=== PATIENT | female | born 1965 | race Caucasian/White ===

== ENCOUNTER → 2016-06-28 | Outpatient (CLI) | payer OTHER, BC ==
[~2016-06-28] MED LIST: ADDERALL 10 MG10 MG PO; ADULT LOW DOSE81 MG PO; ALBUTEROL INH INH; ALBUTEROL2.5 MG/31 INH; ALENDRONATE SOD70 MG PO; AMBEREN PO; ANASPAZ0.125 MG SL; ASPIRIN EC81 M1 PO; ATIVAN0.5 MG PO; BACTRIM DS TAB1 EACH PO; BENTYL 20 MG TA20 M1 PO; BENTYL20 MG PO; CALCIUM 1,0001 EACH PO; CALCIUM 500+D1 EAC2 PO; CARAFATE 1 GM TA1 G1; CARAFATE 1 GM TA1 GM PO; CELEBREX 200 M200 MG PO; CENTRUM SILVER1 EAC1 PO; CENTRUM SILVER1 EAC2 PO; CIPRO250 M1 PO; CIPROFLOXACIN500 M1 PO; CITRACAL + D C1 EACH PO; CITRACAL + D31 EACH PO; CITRATE OF MAG296 ML PO; CLONAZEPAM 0.50.5 M1 PO; CLONAZEPAM 1 MG1 M1 PO; COLACE 100 MG100 MG PO; COLACE100 MG PO; COLESTID1 GM PO; COLESTIPOL; COMPAZINE10 M1 PO; COMPAZINE10 MG PO; COMPAZINE5 MG PO; DEXEDRINE10 MG PO; DEXTROAMP-AMPHE10 MG PO; DEXTROSTAT10 MG PO; DIFLUCAN PO; DIFLUCAN150 MG PO; DILAUDID 2 MG TA2 MG PO; DILAUDID2 MG PO; DOMPERIDONE PO; DULCOLAX STOOL100 MG PO; DULERA 100 MCG/13 GM; ENDOCET 5-3251 EACH PO; FENTANYL PA50 MCG/HR TP; FLAGYL500 MG PO; FLOMAX0.4 MG PO; GLYCOLAX POWDER17 G1 PO; HYDROCODON-ACE1 EAC1 PO; HYDROCODONE-AP1 EAC6 PO; HYDROXYZINE HCL25 M1 PO; LEXAPRO20 MG PO; LIDODERM 5%1 PATC1 TRANSDERM; LIDODERM 5%1 PATCH TOP; LINZESS145 MCG PO; LINZESS290 MCG PO; LORTAB PO; LOTRIMIN AF12 GM TP; LOVENOX IJ; LOVENOX SC; LOVENOX SQ; LOW DOSE ASPIRI81 M1 PO; MACROBID 100 M100 M1 PO; MAGNESIUM GLUC250 MG PO; METOCLOPRAMIDE10 MG PO; MIRALAX17 GM PO; MOM PO; MOVANTIK25 MG PO; MULTIVITAMINS PO; MUPIROCIN1 GM TP; OSPHENA60 MG PO; OXYCODON-ACETA1 EAC1 PO; OXYCODONE HCL E20 MG PO; OXYCODONE HCL10 MG PO; OXYCODONE HCL5 M1; OXYCODONE HCL5 M1 PO; OXYCONTIN10 M1 PO; OXYCONTIN20 MG PO; PANTOPRAZOLE SO40 M1 PO; PERCOCET 5-3251 EACH PO; PERCOCET PO; PHENAZOPYRIDIN200 M2 PO; PHENERGAN 25 MG25 M1 PO; PHENERGAN25 M2 RC; PHENERGAN50 MG RC; PREDNISONE 20 M20 M1 PO; PROAIR HFA8.5 GM; PROBIOTIC1 EAC1 PO; PROBIOTIC1 EAC3 PO; PROMETHAZINE HC25 M1 PO; PROMETHAZINE-C120 ML PO; PROMETHAZINE12.5 M4 RE; PROMS25 WY RECTAL; PROTONIX40 M2 PO; RESTASIS1 EACH OPHTHALMIC; ROXICODONE15 MG PO; SCOPOLAMINE 0.4 MG/ML; SIMVASTATIN40 MG PO; SPIRIVA18 MCG; TRAMADOL PO; TRANSDERM-SCO1 PATC1 TD; TRANSDERM-SCO1 PATCH; TRANSDERM-SCO1 PATCH TD; TYLENOL325 MG PO; VENTOLIN HFA 1818 GM; VENTOLIN HFA 1818 GM INH; VENTOLIN17 GM INH; VITAMIN D 5050000 I1 PO; VITAMINC500 PO; VITCB500GO; VIVANCE; VYVANSE70 MG PO; WELLBUTRIN 100100 M1 NG; WELLBUTRIN 100100 MG PO; WELLBUTRIN XL150 M2 PO; WELLBUTRIN XL300 MG PO; XARELTO10 MG PO; XIFAXAN550 MG PO; ZANAFLEX4 MG PO; ZOFRAN 4 MG ORAL4 M1 DIS; ZOFRAN 4 MG ORAL4 MG PO; ZOFRAN ODT4 MG DISSOLVE; ZOFRAN ODT4 MG PO; ZOFRAN4 MG PO; ZOFRAN8 MG PO; ZPAK PO; [UNRECOGNIZED DRUG - OTHER]
--- NOTE | ~2016-06-28 | P ---
[facility] [place] [address] PROCEDURE REPORT Name: AVEL BEARD [id number] Admission: 06/28/16 Attend Phys: Neil Mayfield Discharge: Date of : 61 Report #: [id number] THIS REPORT FOR: //name// CC: Neil Mccann MD DATE OF SERVICE: 06/28/2016 PROCEDURE PERFORMED: Upper endoscopy with esophageal dilation and removal and replacement of peg J tube. HISTORY OF PRESENT ILLNESS: The patient is a 51-year-old female with a history of dysphagia and gastroparesis. She has had a peg J tube in place for years for nutritional support. The tube is getting old and needs to be replaced. She has also been complaining of dysphagia. DESCRIPTION OF PROCEDURE: The risks and benefits of the procedure were explained to the patient, those risks including but not limited to bleeding, perforation, the risk of sedation. She understood these risks and gave informed consent. Sedation was given using propofol per anesthesia. Next, using a standard Enswersinon upper endoscope, the scope was placed in the patient's mouth and advanced under direct vision through the esophagus, stomach and into the second portion of the duodenum. The esophagus was normal throughout. The GE junction was normal. Overall, the gastric mucosa was normal. The PEG tube with J-extension was noted, it was coiled in the stomach, however, the distal portion was in the duodenal bulb. The pylorus was normal and patent. The duodenal bulb, first and second portion were all normal. The scope was then brought back up into the patient's stomach and a Savary guidewire was inserted through the scope, leaving the guidewire in place as the scope was then withdrawn. Next, a 48-Scottish Savary dilation of the esophagus was then performed without difficulty. The wire and the dilator were removed. The scope was reintroduced into the patient's stomach. At this point, the peg J was pulled without difficulty and a blue guidewire was inserted through the peg fistula into the gastric lumen under direct vision. This was grasped with a snare and the wire was brought back up to the patient's mouth. Next, a 24-Scottish PEG tube was then secured to the blue guidewire and using a pull technique, it was put into position without difficulty. Next, the scope was reintroduced into the patient's stomach and a guidewire was advanced through the PEG tube. This was grasped with a biopsy forceps, and this was brought back down into the duodenum. Next a J tube was threaded over the wire without difficulty. Unfortunately I was not able to maintain the distal portion of the J-tube in the duodenum as it kept coiling in the stomach, which has happened multiple times in the past. Therefore, at this point, the scope was then withdrawn and the procedure terminated. The patient tolerated the procedure well. [address] [address] PROCEDURE REPORT Name: AVEL BEARD Room #: FRAN Cordova#: [id number] Admission: 06/28/16 Attend Phys: Neil Mayfield Discharge: Date of : 61 Report #: [id number] IMPRESSION: Normal upper endoscopy with esophageal dilation, removal and replacement of peg J tube. RECOMMENDATIONS: We will have IR wire-guide the J-portion into the duodenum later today, after which the patient can start using peg J tube today. Thank you for allowing me to participate in her care. <ELECTRONICALLY SIGNED> By: Neil Gandara MD 07/05/16 0936 1124 1541 Neil Gandara MD /nt
== END | disposition home or self-care (01) ==
LOC: GI 09:09
DX: K31.84 Gastroparesis (principal); M79.7 Fibromyalgia; K58.8 Other irritable bowel syndrome; J45.909 Unspecified asthma, uncomplicated; E83.118 Other hemochromatosis; N30.10 Interstitial cystitis (chronic) without hematuria; D68.61 Antiphospholipid syndrome; K22.4 Dyskinesia of esophagus; Z90.710 Acquired absence of both cervix and uterus; F17.200 Nicotine dependence, unspecified, uncomplicated
CPT/HCPCS: 62110

== ENCOUNTER 2016-06-30 12:35 | Emergency (ER) | payer OTHER, BC ==
[~2016-06-30] VITALS: Ht 165.1 cm; Wt 65.8 kg
[~2016-06-30 12:35] MED LIST changes: -MACROBID 100 M100 M1 PO; -OXYCODONE HCL10 MG PO
[2016-06-30] MEDS ORDERED: OXYCODONE HCL10 MG PO (13:25)
[2016-06-30 14:01] LABS: URINE BILIRUBIN NEGATIVE (Negative); URINE BLOOD 1+ (Negative); URINE COLOR YELLOW; URINE GLUCOSE-RANDOM* NEGATIVE (Negative); URINE KETONES NEGATIVE (Negative); URINE NITRITE NEGATIVE (Negative); URINE PROTEIN (DIPSTICK) TRACE (Negative); URINE SPECIFIC GRAVITY >= 1.030 (1.003-1.035); URINE UROBILINOGEN 0.2 E.U./dl (0.2-1.0)
[2016-06-30 14:06] LABS: SQUAMOUS 0-3 Few /LPF (0-3)
[2016-06-30 14:07] LABS: BACTERIA 1-9 Few /HPF (None Seen); CASTS None Seen /LPF (None Seen); CRYSTALS None Seen /LPF (None Seen); URINE RBC 0-2 Rare /HPF (0-2)
[2016-06-30] MEDS ORDERED: MACROBID 100 M100 M1 PO (14:20)
[2016-06-30 14:49] LABS: HEMATOCRIT 38.7 % (37.0-47.0); HEMOGLOBIN 13.1 gm/dL (12.0-15.0); MCH 30.5 pg (26.0-34.0); MCHC 33.7 g/dL (28.0-37.0); MCV 90.5 fL (80.0-100.0); RBC 4.28 mil/uL (4.20-5.00); RDW 14.2 % (10.5-14.5); WBC 4.6 thou/uL (4.0-11.0)
[2016-06-30 14:56] LABS: CALCIUM 9.7 mg/dL (8.5-10.1); CREATININE 0.7 mg/dL (0.6-1.3); POTASSIUM 3.6 mmol/L (3.5-5.1)
[2016-06-30 15:56] VITALS: BP 133/84
== END 2016-06-30 15:57 | disposition home or self-care (01) ==
LOC: ER 12:35
PROVIDERS: Emergency Medicine
DX: K94.29 Other complications of gastrostomy (principal); N39.0 Urinary tract infection, site not specified; J45.909 Unspecified asthma, uncomplicated; Z90.710 Acquired absence of both cervix and uterus; Z88.5 Allergy status to narcotic agent; Z88.8 Allergy status to other drugs, medicaments and biological substances; F17.210 Nicotine dependence, cigarettes, uncomplicated; F10.99 Alcohol use, unspecified with unspecified alcohol-induced disorder

== ENCOUNTER → 2016-07-02 | Outpatient (CLI) | payer OTHER, BC ==
[~2016-07-02] VITALS: Ht 165.1 cm; Wt 65.8 kg
[~2016-07-02] MED LIST changes: +MACROBID 100 M100 M1 PO; +OXYCODONE HCL10 MG PO
[2016-07-02 07:43] VITALS: BP 117/57
[2016-07-02 10:52] VITALS: BP 138/74
== END | disposition home or self-care (01) ==
LOC: SPEC 07:08
DX: K31.84 Gastroparesis (principal)

== ENCOUNTER 2016-07-11 12:01 | Emergency (ER) | payer OTHER, BC ==
[~2016-07-11] VITALS: Ht 165.1 cm; Wt 68.0 kg
[2016-07-11 15:31] VITALS: BP 166/67
== END 2016-07-11 15:42 | disposition home or self-care (01) ==
LOC: ER 12:01
DX: R10.9 Unspecified abdominal pain (principal); Z97.8 Presence of other specified devices; J45.909 Unspecified asthma, uncomplicated; Z90.710 Acquired absence of both cervix and uterus; Z88.5 Allergy status to narcotic agent; Z88.8 Allergy status to other drugs, medicaments and biological substances; F17.210 Nicotine dependence, cigarettes, uncomplicated; F10.99 Alcohol use, unspecified with unspecified alcohol-induced disorder

== ENCOUNTER → 2016-08-30 | Outpatient (CLI) | payer OTHER, BC ==
[~2016-08-30] VITALS: Ht 167.6 cm; Wt 64.4 kg
[~2016-08-30] MED LIST changes: +DULCOLAX5 MG PO; -PROAIR HFA8.5 GM; +PROAIR HFA8.5 GM INH
--- NOTE | ~2016-08-30 | P ---
[facility] [place] [address] PROCEDURE REPORT Name: AVEL BEARD Room #: [facility] [id number] Admission: 08/30/16 Attend Phys: Neil Mayfield Discharge: Date of : 61 Report #: [id number] THIS REPORT FOR: //name// CC: Neil Mccann MD DATE OF SERVICE: 08/30/2016 PROCEDURE PERFORMED: Upper endoscopy with removal of J-tube and replacement with PEG-J tube. HISTORY OF PRESENT ILLNESS: The patient is a 51-year-old female with a long history of gastroparesis, nausea, vomiting and abdominal pain, who has been PEG-J dependent for a number of years. She had a new J placed by Dr. Nicole at the beginning of June this year. The patient does not like the type of J-tube in place and therefore, plan is for replacement today. DESCRIPTION OF PROCEDURE: The risks and benefits of the procedure were explained to the patient, those risks including but not limited to bleeding, perforation and the risk of sedation. She understood these risks and gave informed consent. Sedation was given using propofol per anesthesia. Next, using a standard KillerStartupsn upper endoscope, the scope was placed in the patient's mouth and advanced under direct vision through the esophagus, stomach and into the second portion of the duodenum. The esophagus was normal throughout. The GE junction was normal. Overall, the gastric mucosa was normal. The pylorus was normal and patent. The duodenal bulb, first and second portion, were all normal. The scope was then brought back up into the patient's stomach. The balloon was deflated on the J-tube and the J-tube was removed without difficulty. Next, a blue guidewire was inserted through the PEG fistula and this was grasped with a snare and brought back up through the patient's mouth when the scope was withdrawn. Next, a 24-Belarusian PEG tube was secured to the blue guidewire and using a pull technique, it was put into position without difficulty. This was secured to the anterior abdominal wall. Next, the scope was reintroduced into the patient's mouth and into the stomach. At this point, a wire was then passed through the G tube. This was grasped with a biopsy forceps and brought back down into the duodenum. The scope was then brought back up into the patient's stomach and a J-tube was advanced over the guidewire. Several attempts to have the J-tube into the duodenum were unsuccessful. At this point, the wire was removed and the J-tube was advanced through the G-tube. I was able to guide the J-tube using a biopsy forceps through the pylorus into the duodenum. At this point, the J-tube was in proper position and was secured to the G-tube. The scope was then withdrawn and the procedure terminated. The patient tolerated the procedure well. [address] [address] PROCEDURE REPORT Name: AVEL BEARD Room #: REG SOLOMON Cordova#: [id number] Admission: 08/30/16 Attend Phys: Neil Mayfield Discharge: Date of : 61 Report #: [id number] IMPRESSION: 1. Removal of old J-tube and replacement with new PEG-J without difficulty. 2. Otherwise, normal upper endoscopy. RECOMMENDATIONS: Okay to start using J-tube today. Thank you for allowing me to participate in her care. By: 0947 1453 Neil Gandara MD /inocente
== END ==
LOC: GI 08:00
DX: Z43.1 Encounter for attention to gastrostomy (principal); Z87.440 Personal history of urinary (tract) infections

== ENCOUNTER → 2017-05-30 | Outpatient (CLI) | payer OTHER, BC ==
[~2017-05-30] VITALS: Ht 167.6 cm; Wt 59.9 kg
[~2017-05-30] MED LIST changes: +ALENDRONAT70 MG/75 M PER TUBE; +BACLOFEN 10MG T10 MG VAG; +BACLOFEN VAG; +BACTROBAN CREAM30 G1 TOP; +BISACODYL SUPP10 MG RECTAL; +CAL HN PER TUBE; +CALCIUM 600 +1 EAC1 PO; +CENTRUM SILVER1 EAC4 PO; +CLOTRIMAZOLE 1%15 G1 TOP; +MOTION SICKNESS50 MG PO; +MULTIVITAMINS1 EAC7 PO; +UNICOMPLEX M TA1 TA1 PO; +ZANAFLEX4 M1 PO; +ZENPEP PO; -ZOFRAN ODT4 MG DISSOLVE; +ZOFRAN ODT4 MG PER TUBE; +ZOFRAN SUSP4 MG/5 ML PER TUBE
--- NOTE | ~2017-05-30 | P ---
[facility] [place] [address] PROCEDURE REPORT Name: AVEL BEARD Room #: REG [facility] Lexa.#: [id number] Admission: 05/30/17 Attend Phys: Neil Mayfield Discharge: Date of : 61 Report #: [id number] THIS REPORT FOR: //name// CC: Neil Mccann MD DATE OF SERVICE: 05/30/2017 PROCEDURE PERFORMED: Upper endoscopy with PEG-J tube removal and replacement as well as esophageal dilation. HISTORY OF PRESENT ILLNESS: The patient is a 52-year-old female who is well known to me with a long history of gastroparesis, chronic abdominal pain, nausea, vomiting, diarrhea and constipation, previous history of colon polyps. Plan today is for replacement of PEG-J tube as it is old and needs to be replaced and colonoscopy due to the history of polyps. DESCRIPTION OF PROCEDURE: The risks and benefits of the procedure were explained to the patient, those risks including but not limited to bleeding, perforation, the risk of sedation. She understood these risks and gave informed consent. Sedation was given using propofol and ketamine. Next, using a standard Innov[employer] Conceptsinon upper endoscope, the scope was placed in the patient's mouth and advanced under direct vision to the esophagus, stomach and into the second portion of the duodenum. The larynx was normal in appearance. The esophagus was normal throughout. The GE junction was normal. Overall, the gastric mucosa was normal. The PEG tube with J-extension was noted in the gastric lumen. The J-tube portion was coiled in the stomach and was not in the duodenum. The pylorus was normal and patent. The duodenal bulb, first and second portion were all normal. At this point, the scope was then brought back up into the patient's stomach and a Savary guidewire was inserted through the scope, leaving the guidewire in place. Next, a 48-Icelandic Savary dilation of the esophagus was then performed without difficulty. The wire and dilator were removed. The scope was reintroduced into the patient's stomach. There was no evidence of mucosal tear after dilation. At this point, the PEG-J tube was removed through the PEG fistula through simple traction. Next, a blue guidewire was inserted through the PEG fistula and this was grasped with a snare through the upper endoscope and then brought back up through the patient's mouth. Next, a 24-Icelandic Rachid-Cook G-tube was secured to the blue guidewire and using a pull technique was put into position without difficulty. The scope was reintroduced into the patient's stomach. At this point, the outside flange was secured to the anterior abdominal wall and a J-tube was then gently advanced through the PEG tube. I used the scope and a biopsy forcep to guide this through the pylorus into the duodenum. The J-tube was in proper position. There was no evidence of coiling in the stomach. At this point, the J-tube then was secured to the PEG tube. The scope was then withdrawn and the procedure terminated. [facility] [address] [place] [address] PROCEDURE REPORT Name: AVEL BEARD Room #: REG SOLOMON Cordova#: [id number] Admission: 05/30/17 Attend Phys: Neil Mayfield Discharge: Date of : 61 Report #: [id number] The patient tolerated the procedure well. IMPRESSION: 1. Status post removal of percutaneous endoscopic gastrostomy-jejunostomy tube with replacement as described above. 2. Status post esophageal dilation. 3. Otherwise, normal upper endoscopy. RECOMMENDATIONS: Okay to start using PEG-J tube today. Thank you for allowing me to participate in her care. <ELECTRONICALLY SIGNED> By: Neil Gandara MD 06/04/17 0914 0944 1845 Neil Gandara MD /nt
--- NOTE | ~2017-05-30 | P ---
[facility] [place] [address] PROCEDURE REPORT Name: AVEL BEARD [facility] #[facility] [id number] Admission: 05/30/17 Attend Phys: Neil Mayfield Discharge: Date of : 61 Report #: [id number] THIS REPORT FOR: //name// CC: Neil Mccann MD DATE OF SERVICE: 05/30/2017 PROCEDURE PERFORMED: Colonoscopy with biopsies. HISTORY OF PRESENT ILLNESS: The patient is a 52-year-old female with a history of gastroparesis, chronic nausea and vomiting who is tube dependent for nutritional support. She also has chronic abdominal pain, intermittent diarrhea and constipation. She also has a previous history of colon polyps in the past. She is here for a 5-year followup. PROCEDURE: The risks and benefits of the procedure were explained to the patient, those risks including, but not limited to bleeding, perforation, and the risk of sedation. She understood these risks and gave informed consent. Sedation was given using propofol and ketamine per anesthesia. Next, a digital rectal exam was initially performed, which was normal. Next, using a standard Fujinon colonoscope, the scope was placed in the patient's anus and advanced under direct vision to the cecum. The overall prep was excellent. The cecum and ileocecal valve were normal in appearance. Ascending, transverse, descending and sigmoid colon were all normal. The rectal mucosa was normal. On retroflexion, no abnormalities were noted. Random biopsies were obtained today to rule out the possibility of microscopic colitis, this patient does have a history of intermittent diarrhea. The scope was then withdrawn and the procedure terminated. The patient tolerated the procedure well. IMPRESSION: Normal colonoscopy. PLAN: 1. Await biopsy results. 2. Repeat colonoscopy in 10 years. Thank you for allowing me to participate in her care. <ELECTRONICALLY SIGNED> By: Neil Gandara MD 05/30/17 1418 0946 1221 Neil Gandara MD /nt
--- NOTE | ~2017-05-30 | S ---
[facility] [place] [address] SURGICAL PATH RPT PROCEDURE Name: ARLIEN BRITT Room #: REG April ..#: [id number] Admission: 05/30/17 Date of : 61 Discharge: Report #: [id number] Path Case #: [id number] PATHOLOGY REPORT COLLECTION DATE: 05/30/2017 RECEIVED DATE: 05/30/2017 SUBMITTING PHYS: Dr. Neil Gandara OTHER PHYS: Dr. Ketty Mccann SPECIMEN(S) RECEIVED: A.Random colon * * * * * * * * * * * * FINAL DIAGNOSIS: Large intestinal mucosa, random colon, rule out microscopic colitis, endoscopic biopsy: - Mild focal active colitis (please see comment). - Melanosis coli. - Negative for dysplasia or malignancy. COMMENT: Examination shows focal surface epithelial acute inflammation, scattered rare focus of cryptitis along with an increased cellularity of lamina propria. Numerous pigmented macrophages are identified within the lamina propria as well in addition to eosinophils as well as lymphocytes. Thickening of collagen layer, or increase in intraepithelial lymphocytes is not identified. There are no crypt abscesses present. There are no granulomata or parasitic organisms identified. Findings may be suggestive of laxative use, bowel preparation, or focal active episode of colitis, as well as medication-induced colitis. Please correlate clinically. (IUV:mgr; 06/02/2017) PATHOLOGIST: Janee Bonds M.D. REPORT ELECTRONICALLY SIGNED BY: Janee Bonds M.D. DATE/TIME: 06/02/2017 14:46 * * * * * * * * * * * * GROSS PATHOLOGY: Received in formalin labeled "Arline Britt, random colon biopsies rule out microscopic colitis" and consists of 2 mccarty mucosal biopsies each averaging 0.3 cm. There are entirely submitted as A1. (DOROTEO; 05/30/2017) CLINICAL HISTORY: [address] [address] SURGICAL PATH RPT PROCEDURE Name: ARLINE BRITT Room #: REG [facility]ENTER[facility]minata.#: [id number] Admission: 05/30/17 Date of : 61 Discharge: Report #: [id number] Path Case #: [id number] Nausea, vomiting, diarrhea, abdominal pain, replaced G-J tube INITIAL CPT CODE(S): A; 45699 Professional services performed by [facility] [address], [place] [address] Technical services performed by [facility] at [address] [place] [address], [place] [address]. [facility] [address] [place] [address] PHONE: [phone] DIRECTOR: Edd Benites M.D. * * * END OF REPORT * * *
== END | disposition home or self-care (01) ==
LOC: GI 06:55
DX: K31.84 Gastroparesis (principal); J45.909 Unspecified asthma, uncomplicated; M79.7 Fibromyalgia; M81.0 Age-related osteoporosis without current pathological fracture; M19.90 Unspecified osteoarthritis, unspecified site; R53.82 Chronic fatigue, unspecified; F32.89 Other specified depressive episodes; F41.8 Other specified anxiety disorders; Z87.891 Personal history of nicotine dependence; Z86.010 Personal history of colon polyps; Z98.890 Other specified postprocedural states; Z90.49 Acquired absence of other specified parts of digestive tract; Z90.710 Acquired absence of both cervix and uterus; Z96.642 Presence of left artificial hip joint; Z88.8 Allergy status to other drugs, medicaments and biological substances; Z79.82 Long term (current) use of aspirin

== ENCOUNTER → 2017-08-18 | Outpatient (CLI) | payer OTHER, BC ==
[~2017-08-18] VITALS: Ht 167.6 cm; Wt 59.4 kg
[~2017-08-18] MED LIST changes: -BACLOFEN 10MG T10 MG VAG; -BISACODYL SUPP10 MG RECTAL; -MULTIVITAMINS1 EAC7 PO
--- NOTE | ~2017-08-18 | P ---
[facility] [place] [address] PROCEDURE REPORT Name: AVEL BEARD Room #: REG [facility].#: [id number] Admission: 08/18/17 Attend Phys: Neil Mayfield Discharge: Date of : 61 Report #: [id number] THIS REPORT FOR: //name// CC: Neil Mccann DATE OF SERVICE: 08/18/2017 PROCEDURE PERFORMED: Upper endoscopy with replacement of PEG-J tube. HISTORY OF PRESENT ILLNESS: The patient is a 52-year-old female with a long history of gastroparesis and abdominal pain, who requires a new PEG-J replacement. Recent KUB showing the J portion of the tube is coiled into the patient's stomach. Plan is for replacement. DESCRIPTION OF PROCEDURE: The risks and benefits of the procedure were explained to the patient, those risks including but not limited to bleeding, perforation and the risk of sedation. She understood these risks and gave informed consent. Propofol was given per anesthesia. Next, using a standard Olympus upper endoscope, the scope was placed in the patient's mouth and advanced under direct vision through the esophagus, stomach and into the second portion of the duodenum. Overall, the esophagus was normal. The gastric mucosa was normal. The PEG-J was noted to be and coiled in the patient's stomach and not in the duodenum. The pylorus was normal and patent. The duodenal bulb, first and second portion, were all normal. Scope was then brought back up into the patient's stomach and the PEG-J tube was removed through simple traction through her PEG fistula without difficulty. Next, a blue guidewire was inserted through the fistula and grasped with a snare. This was brought back up to the patient's mouth with the scope. Next, a 24-Fijian Rachid[employer] G-tube was secured to the blue guidewire and using a pull technique, was put into position without difficulty. Next, the scope was re-introduced into the patient's mouth and a J-tube guidewire was inserted through the PEG tube. This was grasped with a biopsy forceps and brought down into the duodenum. Next, the J-tube was then advanced over the guidewire. Multiple attempts were made to pass the J-tube into the duodenum; however, these all failed, eventually resulting in the two coiling in the gastric body and antrum. I tried multiple different techniques today, but was unsuccessful. At this point, the J-tube was then secured into the G-tube and the plan is to send the patient to IR for further placement. The scope was then withdrawn and the procedure terminated. The patient tolerated the procedure well. [address] [address] PROCEDURE REPORT Name: KISHAAVEL DINESH Room #: REG SOLOMON Cordova#: [id number] Admission: 08/18/17 Attend Phys: Neil Mayfield Discharge: Date of : 61 Report #: [id number] IMPRESSION: Replacement of PEG-J tube today as described above. Unable to advance the J portion of the tube into the duodenum. Therefore, we will send the patient over to IR later today to have them hopefully advance the J portion into the duodenum. Thank you for allowing me to participate in her care. <ELECTRONICALLY SIGNED> By: Neil Gandara MD 08/20/17 0816 1115 1434 Neil Gandara MD /nt
== END | disposition home or self-care (01) ==
LOC: GI 08:29
DX: K94.23 Gastrostomy malfunction (principal); K21.9 Gastro-esophageal reflux disease without esophagitis; J45.909 Unspecified asthma, uncomplicated; M79.7 Fibromyalgia; R53.82 Chronic fatigue, unspecified; M81.0 Age-related osteoporosis without current pathological fracture; M19.90 Unspecified osteoarthritis, unspecified site; F41.9 Anxiety disorder, unspecified; F32.9 Major depressive disorder, single episode, unspecified; Z98.890 Other specified postprocedural states; Z90.710 Acquired absence of both cervix and uterus; Z90.49 Acquired absence of other specified parts of digestive tract; Z96.642 Presence of left artificial hip joint; Z87.891 Personal history of nicotine dependence; Z79.899 Other long term (current) drug therapy; Z87.440 Personal history of urinary (tract) infections; Z88.8 Allergy status to other drugs, medicaments and biological substances; Z79.82 Long term (current) use of aspirin; Z79.891 Long term (current) use of opiate analgesic
CPT/HCPCS: 62110; 62900

== ENCOUNTER → 2017-12-24 | Outpatient (CLI) | payer OTHER, BC ==
[~2017-12-24] VITALS: Ht 165.1 cm; Wt 61.2 kg
[~2017-12-24] MED LIST changes: +BACLOFEN 10MG T10 MG VAG; +BISACODYL SUPP10 MG RECTAL; +MULTIVITAMINS1 EAC7 PO
--- NOTE | ~2017-12-24 | P ---
[facility] [place] [address] PROCEDURE REPORT Name: AVEL BEARD [facility] #: [facility] [id number] Admission: 12/24/17 Attend Phys: Neil Mayfield Discharge: Date of : 61 Report #: [id number] THIS REPORT FOR: //name// CC: Neil Aburto DATE OF SERVICE: 12/24/2017 PROCEDURE PERFORMED: Upper endoscopy with esophageal dilation and PEG tube replacement. HISTORY OF PRESENT ILLNESS: The patient is a 52-year-old female with a long history of gastroparesis who requires a PEG-J for nutritional support. She also has intermittent dysphagia. She has undergone multiple PEG-J exchanges over the last several years. The tube is worn and needs to be replaced at this time. PROCEDURE: The risks and benefits of the procedure were explained to the patient, those risks including but not limited to bleeding, perforation, the risk of sedation. She understood these risks and gave informed consent. Sedation was given using propofol per anesthesia. Next, using a standard Scalent Systemsinon upper endoscope, the scope was placed in the patient's mouth and advanced under direct vision through the esophagus, stomach and into the second portion of the duodenum. The esophagus was normal throughout. The GE junction was normal. Overall, the gastric mucosa was normal. The PEG J-tube was noted in the patient's stomach. The J portion was in the gastric antrum and not in the duodenum. The pylorus was normal and patent. The duodenal bulb, first and second portion were all normal. The scope was then brought back up into the patient's stomach and a Savary guidewire was inserted through the scope, leaving the wire in place as the scope was then withdrawn. Next, a 48-Upper Sorbian Savary dilation of the esophagus was then performed without difficulty. The wire and dilator were removed. The scope was reintroduced into the patient's stomach. At this point, the PEG-J was removed by simple traction through the PEG fistula. A blue guidewire was inserted through the fistula and this was grasped with a snare through the endoscope and brought back up to the patient's mouth. Next, a 24-Upper Sorbian Rachid-Cook PEG tube was secured to the blue guidewire and using a pull technique, was put into place without difficulty. Next, the scope was reintroduced into the patient's stomach. At this point, the guidewire was inserted through the PEG tube. This was grasped with a biopsy forceps and brought down into the duodenum. The scope was then brought back up into the stomach, leaving the wire in place. The J-tube was then advanced over the guidewire into the duodenum. The wire was removed. The scope was then withdrawn and the PEG tube was secured to the anterior abdominal wall. The procedure was terminated. The patient tolerated the procedure well. [address] [address] PROCEDURE REPORT Name: AVEL BEARD Room #: FRAN Cordova#: [id number] Admission: 12/24/17 Attend Phys: Neil Mayfield Discharge: Date of : 61 Report #: [id number] IMPRESSION: 1. Successful exchange of PEG J-tube as described above. 2. Status post esophageal dilation. 3. Otherwise, normal upper endoscopy. RECOMMENDATIONS: 1. Observe the patient post-procedure. 2. Okay to start using PEG J-tube today. Thank you for allowing me to participate in her care. <ELECTRONICALLY SIGNED> By: Neil Gandara MD 12/27/17 1425 0903 1242 Neil Gandara MD /nt
== END | disposition home or self-care (01) ==
LOC: GI 06:47
DX: K94.23 Gastrostomy malfunction (principal); R13.19 Other dysphagia; K31.84 Gastroparesis; M79.7 Fibromyalgia; J45.909 Unspecified asthma, uncomplicated; G62.9 Polyneuropathy, unspecified; M81.0 Age-related osteoporosis without current pathological fracture; M19.90 Unspecified osteoarthritis, unspecified site; F32.9 Major depressive disorder, single episode, unspecified; F51.04 Psychophysiologic insomnia; F41.9 Anxiety disorder, unspecified; R53.82 Chronic fatigue, unspecified; Z87.891 Personal history of nicotine dependence; Z87.19 Personal history of other diseases of the digestive system; Z90.49 Acquired absence of other specified parts of digestive tract; Z90.710 Acquired absence of both cervix and uterus; Z96.642 Presence of left artificial hip joint; Z98.890 Other specified postprocedural states; Z88.8 Allergy status to other drugs, medicaments and biological substances; Z79.899 Other long term (current) drug therapy; Z79.82 Long term (current) use of aspirin
CPT/HCPCS: 62110; 62900

== ENCOUNTER → 2018-02-27 | Outpatient (CLI) | payer OTHER, BC | END | disposition home or self-care (01) | LOC: SPEC 11:50 | DX: K94.23 Gastrostomy malfunction (principal); K31.84 Gastroparesis; G89.29 Other chronic pain; Z87.440 Personal history of urinary (tract) infections; Z79.899 Other long term (current) drug therapy; Z79.82 Long term (current) use of aspirin; Z88.8 Allergy status to other drugs, medicaments and biological substances; Z79.891 Long term (current) use of opiate analgesic; Y83.8 Other surgical procedures as the cause of abnormal reaction of the patient, or of later complication, without mention of misadventure at the time of the procedure ==

== ENCOUNTER → 2018-04-22 | Outpatient (CLI) | payer OTHER, BC ==
[~2018-04-22] VITALS: Ht 167.6 cm; Wt 61.2 kg
--- NOTE | ~2018-04-22 | P ---
[facility] [place] [address] PROCEDURE REPORT Name: AVEL BEARD [id number] Admission: 04/22/18 Attend Phys: Neil Mayfield Discharge: Date of : 61 Report #: [id number] THIS REPORT FOR: //name// CC: Neil Mccann MD DATE OF SERVICE: 04/22/2018 PROCEDURE PERFORMED: Upper endoscopy with esophageal dilation and removal and replacement of PEG-J tube. HISTORY OF PRESENT ILLNESS: The patient is a 53-year-old female with a long history of gastroparesis, requiring PEG-J nutritional support. Also, complains of dysphagia. She has undergone multiple procedures with replacement of PEG J. She is here for replacement of the tube as it is old and time to be replaced. DESCRIPTION OF PROCEDURE: The risks and benefits of the procedure were explained to the patient, those risks including but not limited to bleeding, perforation, the risk of sedation. She understood these risks and gave informed consent. Sedation was given using propofol and ketamine per anesthesia. Next, using a standard Olympus upper endoscope, the scope was placed in the patient's mouth and advanced under direct vision through the esophagus, stomach and into the second portion of the duodenum. The esophagus was normal throughout. The GE junction was normal. Overall, the gastric mucosa was normal. The PEG-J tube was noted to be in proper position with the J portion through the pylorus into the duodenum. The duodenal bulb, first and second portion were normal. The scope was then brought back up into the patient's stomach and a Savary guidewire was inserted through the scope, leaving the guidewire in place as the scope was then withdrawn. Next, a 48-Cuban Savary dilation of the esophagus was then performed without difficulty. The wire and dilator removed. The scope was reintroduced into the patient's stomach. There was no evidence of mucosal tear after dilation. Next, the stomach was insufflated with air and the PEG-J tube was pulled with simple traction through the PEG fistula. Next, a wire was then inserted through the PEG fistula and grasped with a snare and brought back up with the scope through the patient's mouth. Next, using a push technique, the 24-Cuban PEG tube was pushed into position without difficulty. The scope was then reintroduced into the patient's stomach. The PEG tube bumper was in good position in the mid body through the fistula. At this point, a guidewire was advanced through the PEG tube and was grasped with a biopsy forceps. The wire was then brought down into the duodenal bulb area with the scope. I then brought the scope back up into the mid body of the stomach, leaving the wire and biopsy forceps in the duodenal bulb. Next, the J portion was advanced over the guidewire into the gastric antrum through the pylorus, the J appears to be in good position through the pylorus. This was secured to the G-tube without difficulty. At this point, the scope was then withdrawn and the procedure [facility] [address] [place] [address] PROCEDURE REPORT Name: AVEL BEARD Room #: REG SOLOMON Cordova#: [id number] Admission: 04/22/18 Attend Phys: Neil Mayfield Discharge: Date of : 61 Report #: [id number] terminated. The patient tolerated the procedure well. IMPRESSION: 1. Removal and replacement of PEG-J tube as described above. 2. Esophageal dilation. 3. Otherwise, normal upper endoscopy. RECOMMENDATIONS: 1. Observe the patient post-procedure. 2. Okay to start using PEG-J tube at this time. Thank you for allowing me to participate in her care. By: 0909 1025 Neil Gandara MD /inocente
== END | disposition home or self-care (01) ==
LOC: GI 06:02
DX: K31.84 Gastroparesis (principal); R13.19 Other dysphagia; J45.909 Unspecified asthma, uncomplicated; M79.7 Fibromyalgia; R53.82 Chronic fatigue, unspecified; M19.90 Unspecified osteoarthritis, unspecified site; M81.0 Age-related osteoporosis without current pathological fracture; G62.9 Polyneuropathy, unspecified; F32.9 Major depressive disorder, single episode, unspecified; F41.9 Anxiety disorder, unspecified; Z87.891 Personal history of nicotine dependence; Z86.2 Personal history of diseases of the blood and blood-forming organs and certain disorders involving the immune mechanism; Z87.19 Personal history of other diseases of the digestive system; Z90.49 Acquired absence of other specified parts of digestive tract; Z96.652 Presence of left artificial knee joint; Z90.710 Acquired absence of both cervix and uterus; Z93.1 Gastrostomy status; Z88.8 Allergy status to other drugs, medicaments and biological substances; Z79.82 Long term (current) use of aspirin; Z79.899 Other long term (current) drug therapy
CPT/HCPCS: 62110; 62900

== ENCOUNTER → 2018-08-28 | Outpatient (CLI) | payer OTHER, BC ==
[~2018-08-28] VITALS: Ht 167.6 cm; Wt 60.8 kg
--- NOTE | 2018-08-29 11:05 | P ---
[facility] [place] [address] PROCEDURE REPORT Name: AVEL BEARD [facility] [id number] Admission: 08/28/18 ������������������ Attend Phys: Neil Mayfield Discharge: ������������������ Date of : 61 Report #: [id number] THIS REPORT FOR: //name// CC: Neil Mccann MD DATE OF SERVICE: 08/28/2018 PROCEDURE PERFORMED: Upper endoscopy with esophageal dilation and removal and replacement of PEG-J tube. HISTORY OF PRESENT ILLNESS: The patient is a 53-year-old female with a long history of gastroparesis, requiring PEG-J nutritional support. She is here for a routine exchange of the PEG. This was done approximately every 6 months due to the PEG deteriorating. She has a history of chronic abdominal pain. She has had nausea. She is currently using tube feedings 12 hours during the day. She is able to take some nutrition by mouth. She does report dysphagia. She has benefited from dilations in the past. DESCRIPTION OF PROCEDURE: The risks and benefits of the procedure were explained to the patient, those risks including but not limited to bleeding, perforation and the risk of sedation. She understood these risks and gave informed consent. Sedation was given using propofol per Anesthesia. Next, using a standard Olympus upper endoscope, the scope was placed in the patient's mouth and advanced under direct vision through the esophagus, stomach and into the second portion of the duodenum. The esophagus was normal throughout. The GE junction was normal. No evidence of strictures. Small hiatal hernia was noted. The PEG was noted to be in place; however, the J-tube was coiled up into the patient's stomach. The pylorus was normal and patent. The duodenal bulb, first and second portion were all normal. The scope was then brought back up into the patient's stomach and a Savary guidewire was inserted through the scope, leaving the guidewire in place as the scope was then withdrawn. Next, a 48-Saudi Arabian Savary dilation of the esophagus was then performed without difficulty. The wire and dilator removed. The scope was reintroduced into the patient's stomach. There was no evidence of mucosal tear after dilation. At this point, the PEG-J was removed by simple traction through the PEG fistula through the anterior abdominal wall. Next, a blue guidewire was inserted through the PEG fistula and this was grasped with the snare and brought back up with the scope to the patient's mouth. Next, a new 24-Saudi Arabian Rachid-Cook PEG tube was secured to the blue guidewire and using a pull technique was put into position without difficulty. The scope was reintroduced into the patient's stomach and the PEG tube bumper was noted to be in good position. At this point, the PEG tube was cut at the appropriate length and the external flange was placed. Next, a J guidewire was then advanced through the tube and this was grasped with a biopsy forceps through the scope. This was taken down into the [address] [address] PROCEDURE REPORT Name: AVEL BEARD Room #: REG [facility] Cordova#: [id number] Admission: 08/28/18 ������������������ Attend Phys: Neil Mayfield Discharge: ������������������ Date of : 61 Report #: [id number] patient's duodenum and held into place. Next, the J-tube was then advanced slowly over the guidewire without difficulty into the duodenum. The wire was removed. The J-tube was noted to be in good position. Through the pylorus into the duodenum without any looping. At this point, the scope was then withdrawn and the procedure terminated. The tube was then secured to the anterior abdominal wall. The patient tolerated the procedure well. IMPRESSION: 1. Successful removal and replacement of PEG-J tube as described above. 2. Small hiatal hernia. 3. Status post esophageal dilation. RECOMMENDATIONS: 1. Observe the patient post-procedure. 2. Okay to start using PEG-J tube at this time. Thank you for allowing me to participate in her care. ��������������������������������������������� <ELECTRONICALLY SIGNED> ���������������������������������������� By: Neil Gandara MD ��������������������������������������������� 08/29/18 1105 1026 0540 Neil Gandara MD /nt
== END | disposition home or self-care (01) ==
LOC: GI 08-26 10:32
DX: K94.23 Gastrostomy malfunction (principal); R13.19 Other dysphagia; K31.84 Gastroparesis; K44.9 Diaphragmatic hernia without obstruction or gangrene; F32.9 Major depressive disorder, single episode, unspecified; F41.9 Anxiety disorder, unspecified; M79.7 Fibromyalgia; R53.82 Chronic fatigue, unspecified; J45.909 Unspecified asthma, uncomplicated; G62.9 Polyneuropathy, unspecified; M19.90 Unspecified osteoarthritis, unspecified site; M81.0 Age-related osteoporosis without current pathological fracture; Z87.19 Personal history of other diseases of the digestive system; Z90.49 Acquired absence of other specified parts of digestive tract; Z96.642 Presence of left artificial hip joint; Z90.710 Acquired absence of both cervix and uterus; Z87.891 Personal history of nicotine dependence; Z98.890 Other specified postprocedural states; Z79.899 Other long term (current) drug therapy; Z88.8 Allergy status to other drugs, medicaments and biological substances
CPT/HCPCS: 62110; 62900

== ENCOUNTER → 2019-01-13 | Outpatient (CLI) | payer OTHER, BC ==
[~2019-01-13] VITALS: Ht 165.1 cm; Wt 60.3 kg
[~2019-01-13] MED LIST changes: +AZO BLADDER CO300 MG PO; +CALCIUM CITRAT1 EAC7 PO; +MUPIROCIN22 GM TOP; +NYSTATIN 100,0015 G1 TOP; +TIZANIDINE HCL2 M1 PO; +VOLTAREN GEL 1100 GM TOP; +ZALEPLON 10 MG10 M1 PO
--- NOTE | 2019-01-15 10:31 | P ---
[facility] [place] [address] PROCEDURE REPORT Name: AVEL BEARD Room #: [facility] [id number] Admission: 01/13/19 Attend Phys: Neil Mayfield Discharge: Date of : 61 Report #: [id number] THIS REPORT FOR: //name// CC: Neil Mccann DATE OF SERVICE: 01/13/2019 PROCEDURE PERFORMED: Upper endoscopy with esophageal dilation and PEG-J tube removal and replacement. HISTORY OF PRESENT ILLNESS: The patient is a 53-year-old female with a history of chronic nausea and vomiting due to gastroparesis as well as abdominal pain. REASON FOR ENDOSCOPY: PEG tube removal and replacement as the tube has become worn. She also complains of dysphagia again. She does benefit from dilations in the past. Plan is for EGD. DESCRIPTION OF PROCEDURE: The risks and benefits of the procedure were explained to the patient, those risks including but not limited to bleeding, perforation and the risk of sedation. She understood these risks and gave informed consent. Sedation was given using propofol per anesthesia. Next, using a standard Olympus upper endoscope, the scope was placed in the patient's mouth and advanced under direct vision through the esophagus, stomach and into the second portion of the duodenum. The esophagus was normal throughout. The GE junction was normal. Overall, the gastric mucosa was normal. The PEG tube with J-extension was noted in the patient's stomach; however, the J portion was coiled in her stomach. The pylorus was normal and patent. The duodenal bulb, first and second portion were all normal. The scope was then brought back up into the patient's stomach and a Savary guidewire was inserted through the scope, leaving the guidewire in place. Next, the scope was then withdrawn and a 48-Turkish Savary dilation of the esophagus was performed without difficulty. The wire and dilator removed. The scope was reintroduced into the patient's stomach. At this point, the old PEG-J tube was removed through the PEG fistula by simple traction. Next, a blue guidewire was inserted through the PEG fistula. This was grasped with a snare through the endoscope and brought back up through the patient's mouth. Next, a 24-Turkish Rachid-Cook PEG tube was secured to the blue guidewire and using a pull technique was put into position without difficulty. This was secured to the anterior abdominal wall. The scope was reintroduced into the patient's stomach. The J-tube wire was then inserted in through the PEG tube. This was guided down with a biopsy forceps into the duodenum. Next, the J-tube was then inserted over the wire without difficulty. The tube was then secure. The J-tube is in the duodenal bulb tip. At this point, the scope was then withdrawn and the procedure terminated. The patient tolerated the procedure well. [address] [address] PROCEDURE REPORT Name: AVEL BEARD Room #: FRAN Cordova#: [id number] Admission: 01/13/19 Attend Phys: Neil Mayfield Discharge: Date of : 61 Report #: [id number] IMPRESSION: 1. Removal and replacement of PEG-J tube as described above. 2. Esophageal dilation. 3. Otherwise, normal upper endoscopy. RECOMMENDATIONS: 1. Observe the patient post-dilation. 2. Okay to start using PEG-J tube today. Thank you for allowing me to participate in her care. <ELECTRONICALLY SIGNED> By: Neil Gandara MD 01/15/19 1031 1318 0238 Neil Gandara MD /nt
== END | disposition home or self-care (01) ==
LOC: GI 12-30 09:00
DX: R13.19 Other dysphagia (principal); R10.9 Unspecified abdominal pain; K31.84 Gastroparesis; M79.7 Fibromyalgia; J45.909 Unspecified asthma, uncomplicated; G47.00 Insomnia, unspecified; F32.9 Major depressive disorder, single episode, unspecified; F41.9 Anxiety disorder, unspecified; G62.9 Polyneuropathy, unspecified; M19.90 Unspecified osteoarthritis, unspecified site; M81.0 Age-related osteoporosis without current pathological fracture; R53.82 Chronic fatigue, unspecified; Z87.891 Personal history of nicotine dependence; Z87.442 Personal history of urinary calculi; Z98.890 Other specified postprocedural states; Z79.899 Other long term (current) drug therapy; Z90.49 Acquired absence of other specified parts of digestive tract; Z96.642 Presence of left artificial hip joint; Z90.710 Acquired absence of both cervix and uterus; Z87.19 Personal history of other diseases of the digestive system; Z88.8 Allergy status to other drugs, medicaments and biological substances
CPT/HCPCS: 62110; 62900

== ENCOUNTER → 2019-05-19 | Outpatient (CLI) | payer OTHER, BC ==
[~2019-05-19] VITALS: Ht 165.1 cm; Wt 60.8 kg
[~2019-05-19] MED LIST changes: +FOLIC ACID1 MG PO; +METHOTREXA25 MG/1 M2 SUBQ
--- NOTE | 2019-05-19 09:27 | P ---
[facility] [place] [address] PROCEDURE REPORT Name: AVEL BEARD Room #: [facility] [id number] Admission: 05/19/19 Attend Phys: Neil Mayfield Discharge: Date of : 61 Report #: [id number] THIS REPORT FOR: cc: Natalia Mccann MD, Liliana E. MD McElhinney, Christian C. MD ~ CC: Neil Mccann MD DATE OF SERVICE: 05/19/2019 PROCEDURES PERFORMED: Upper endoscopy with esophageal dilation and removal and replacement of PEG J-tube. HISTORY OF PRESENT ILLNESS: The patient is a 54-year-old female with a long history of chronic nausea, vomiting due to gastroparesis as well as abdominal pain. She is here for recurrent dysphagia and replacement of old PEG J-tube. PROCEDURE: The risks and benefits of the procedure were explained to the patient, those risks including but not limited to bleeding, perforation and the risk of sedation. She understood these risks and gave informed consent. Sedation was given using propofol per anesthesia. Next, using a standard Olympus upper endoscope, the scope was placed in the patient's mouth and advanced under direct vision through the esophagus and into the stomach. The old PEG J-tube was noted to be coiled up in her stomach and not in her duodenum. Next, a Savary guidewire was advanced through the scope leaving the wire in place as the scope was then withdrawn. Next, a 51-Dominican Savary dilation of her esophagus was then performed without difficulty. The wire and dilator were removed. The scope was reintroduced into the patient's stomach. The scope was then advanced through the pylorus, which was normal into the duodenal bulb, first and second portion, which were normal. The scope was then brought back up into the patient's stomach and the old PEG J-tube was removed with simple traction. A blue guidewire was then placed through the PEG tube fistula and this was grasped with a snare in the gastric lumen. This was then brought back up to the patient's mouth with the scope. Next, a 24-Dominican Rachid-ScanCafe G-tube was secured to the blue guidewire and using a pull technique was put into position without difficulty. The PEG flange was then placed externally. Next, a guidewire was then advanced through the PEG tube. This was grasped with a biopsy forceps in the gastric lumen and the scope and wire were advanced into the duodenum. Next, a J-tube was slowly advanced over the wire without difficulty. The wire was then removed. The scope was pulled back up into the patient's stomach. The J-tube was noted to be in proper position through the pylorus. At this point, the scope was then withdrawn and the procedure terminated. The patient tolerated the procedure well. [address] [address] PROCEDURE REPORT Name: AVEL BEARD Room #: REG [facility] Cordova#: [id number] Admission: 05/19/19 Attend Phys: Neil Mayfield Discharge: Date of : 61 Report #: [id number] IMPRESSION: 1. Successful removal and replacement of percutaneous endoscopic gastrostomy jejunostomy tube as described above. 2. Status post esophageal dilation. RECOMMENDATIONS: 1. Observe the patient post procedure. 2. Okay to start using PEG J-tube today. Thank you for allowing me to participate in her care. <ELECTRONICALLY SIGNED> By: Neil Gandara MD 05/19/19 0927 0854 0910 Neil Gandara MD /nt
== END | disposition home or self-care (01) ==
LOC: GI 00:09
DX: Z43.1 Encounter for attention to gastrostomy (principal); R13.19 Other dysphagia; R10.13 Epigastric pain; R11.2 Nausea with vomiting, unspecified; J45.909 Unspecified asthma, uncomplicated; M19.90 Unspecified osteoarthritis, unspecified site; F32.9 Major depressive disorder, single episode, unspecified; F41.9 Anxiety disorder, unspecified; M79.7 Fibromyalgia; R53.82 Chronic fatigue, unspecified; M81.0 Age-related osteoporosis without current pathological fracture; G62.9 Polyneuropathy, unspecified; Z98.890 Other specified postprocedural states; Z79.899 Other long term (current) drug therapy; Z87.19 Personal history of other diseases of the digestive system; Z90.49 Acquired absence of other specified parts of digestive tract; Z87.891 Personal history of nicotine dependence; Z87.442 Personal history of urinary calculi; Z86.2 Personal history of diseases of the blood and blood-forming organs and certain disorders involving the immune mechanism; Z96.642 Presence of left artificial hip joint
CPT/HCPCS: 62110; 62900

== ENCOUNTER → 2019-08-27 | Outpatient (CLI) | payer OTHER, BC ==
[~2019-08-27] VITALS: Ht 165.1 cm; Wt 61.2 kg
[~2019-08-27] MED LIST changes: +FOSAMAX 70 MG T70 MG PO; +VITAMIN B-121000 MC2 SUBLING
--- NOTE | 2019-09-01 08:10 | P ---
[facility] [place] [address] PROCEDURE REPORT Name: AVEL BEARD Room #: REG [facility] Art#: [id number] Admission: 08/27/19 Attend Phys: Neil Mayfield Discharge: Date of : 61 Report #: [id number] THIS REPORT FOR: cc: Natalia Mccann MD, Liliana E. MD McElhinney, Christian C. MD ~ CC: Neil Mccann MD DATE OF SERVICE: 08/27/2019 PROCEDURE PERFORMED: Upper endoscopy with esophageal dilation and replacement of J-tube. HISTORY OF PRESENT ILLNESS: The patient is a 54-year-old female with a long history of gastroparesis, chronic nausea and vomiting, is PEG-J tube dependent for nutrition using this at night. Tube is causing pain and is not flushing properly. The patient also reports recurrent dysphagia. She has benefited from dilations in the past. The plan is for EGD with replacement of the J portion and dilation. DESCRIPTION OF PROCEDURE: The risks and benefits of the procedure were explained to the patient, those risks including but not limited to bleeding, perforation and the risk of sedation. She understood these risks and gave informed consent. Sedation was given using propofol per anesthesia. Next, using a standard Olympus upper endoscope, the scope was placed in the patient's mouth and advanced under direct vision through the esophagus and into the stomach, at which point the J-tube was noted to be coiled up into the patient's stomach. At this point, a Savary guidewire was inserted through the scope, leaving the guidewire in place as the scope was then withdrawn. Next, a 51-Korean Savary dilation of the esophagus was then performed without difficulty. The wire and dilator removed. The scope was reintroduced into the patient's stomach. The esophagus was normal. The GE junction was normal. No evidence of mucosal tear was noted after dilation. The gastric mucosa was normal. The J-tube portion was removed leaving the gastric portion intact. I advanced the scope through the pylorus into the duodenum, which was normal. I brought the scope back up into the patient's stomach. At this point, a guidewire was advanced through the G-tube. This was grasped with a biopsy forceps and advanced into the patient's duodenum. Next, the J-tube was guided over the guidewire and put into position. The J-tube was noted to be in good position in the duodenum in the tip. There was no coiling in the stomach. At this point, the scope was then withdrawn and the procedure terminated. The patient tolerated the procedure well. IMPRESSION: [facility] [address] [place] [address] PROCEDURE REPORT Name: KISHAAVELBRICE MONTIEL Room #: REG [facility] Cordova#: [id number] Admission: 08/27/19 Attend Phys: Neil Mayfield Discharge: Date of : 61 Report #: [id number] 1. Old J-tube was coiled in the stomach. This was removed and replaced with new J portion as described above. Tip is now in the duodenum. 2. Status post esophageal dilation. RECOMMENDATIONS: 1. Observe the patient post-procedure. Okay to start using J-tube at this time. Thank you for allowing me to participate in her care. <ELECTRONICALLY SIGNED> By: Neil Gandara MD 09/01/19 0810 1007 1505 Neil Gandara MD /nt
== END ==
LOC: GI 07:28
DX: K94.13 Enterostomy malfunction (principal); R13.10 Dysphagia, unspecified; R11.2 Nausea with vomiting, unspecified; F32.9 Major depressive disorder, single episode, unspecified; F41.9 Anxiety disorder, unspecified; M79.7 Fibromyalgia; J45.909 Unspecified asthma, uncomplicated; M81.0 Age-related osteoporosis without current pathological fracture; M19.90 Unspecified osteoarthritis, unspecified site; R53.82 Chronic fatigue, unspecified; Z98.890 Other specified postprocedural states; Z79.899 Other long term (current) drug therapy; Z87.442 Personal history of urinary calculi; Z87.891 Personal history of nicotine dependence; Z90.49 Acquired absence of other specified parts of digestive tract; Z96.642 Presence of left artificial hip joint; Z88.8 Allergy status to other drugs, medicaments and biological substances; Z86.2 Personal history of diseases of the blood and blood-forming organs and certain disorders involving the immune mechanism; Z11.59 Encounter for screening for other viral diseases
CPT/HCPCS: 62110; 62900

== ENCOUNTER → 2019-12-24 | Outpatient (CLI) | payer OTHER, BC | LOC: LAB 09:30 | PROVIDERS: ATTEND Specialist | DX: Z01.812 Encounter for preprocedural laboratory examination (principal); Z20.828 Contact with and (suspected) exposure to other viral communicable diseases ==

== ENCOUNTER → 2019-12-29 | Outpatient (CLI) | payer OTHER, BC ==
[~2019-12-29] VITALS: Ht 165.1 cm; Wt 61.2 kg
--- NOTE | 2019-12-30 12:53 | P ---
[facility] [place] [address] PROCEDURE REPORT Name: AVEL BEARD Room #: REG [facility] Juan.#: [id number] Admission: 12/29/19 Attend Phys: Neil Mayfield Discharge: Date of : 61 Report #: [id number] THIS REPORT FOR: cc: Natalia Mccann MD,Neil Laureano MD, MD ~ CC: Neil Mccann MD DATE OF SERVICE: 12/29/2019 PROCEDURE PERFORMED: Upper endoscopy with esophageal dilation and replacement of PEG-J tube. HISTORY OF PRESENT ILLNESS: The patient is a 54-year-old female with a long history of chronic nausea, vomiting, gastroparesis. She is dependent on a PEG-J tube for nutritional support, which she uses at night. Her weight has been stable. She states the tube has not been flushing properly. She is here for a PEG tube exchange. Also, complains of dysphagia. She has benefited from dilations in the past. DESCRIPTION OF PROCEDURE: The risks and benefits of the procedure were explained to the patient, those risks including but not limited to bleeding, perforation and the risk of sedation. She understood these risks and gave informed consent. Sedation was given using propofol per anesthesia. Next, using a standard Olympus upper endoscope, the scope was placed in the patient's mouth and advanced under direct vision through the esophagus, stomach and into the second portion of the duodenum. The esophagus was normal throughout. The GE junction was normal. Overall, the gastric mucosa was normal. The PEG tube with J-extension was noted in the stomach. The J-tube was looped in the stomach and not through the pylorus. The pylorus was normal and patent. The duodenal bulb, first and second portion were all normal. The scope was then brought back up into the patient's stomach and a Savary guidewire was inserted through the scope, leaving the guidewire in place as the scope was then withdrawn. Next, a 51-Tongan Savary dilation of the esophagus was then performed without difficulty. The wire and dilator were removed. The scope was reintroduced into the patient's stomach. No evidence of mucosal tear was noted after dilation. Next, the PEG-J tube was removed by simple traction through the PEG ostomy without difficulty. Next, a blue guidewire was inserted through the PEG fistula into the gastric lumen under direct vision and grasped with a biopsy forceps. The scope with the wire was then brought back up into the patient's mouth. Next, a 24-Tongan Rachid-Cook G-tube was then secured to the blue guidewire and using a pull technique, was put into position without difficulty. The scope was then reintroduced into the patient's stomach. Next, the guidewire was advanced through the PEG tube bumper. This was grasped with a biopsy forceps and brought [address] [address] PROCEDURE REPORT Name: AVEL BEARD Room #: FRAN SOLOMON Cordova#: [id number] Admission: 12/29/19 Attend Phys: Neil Mayfield Discharge: Date of : 61 Report #: [id number] down into the duodenum. Next a J-tube was then advanced over the guidewire without difficulty. The J-tube was in good position through the pylorus into the duodenum. At this point, the scope was then withdrawn and the PEG tube was then secured to the anterior abdominal wall. The patient tolerated the procedure well. IMPRESSION: 1. PEG-J tube exchange as described above. 2. Status post dilation. 3. Otherwise, normal upper endoscopy. RECOMMENDATIONS: Observe the patient post procedure. Okay to start using PEG-J tube at this time. Thank you for allowing me to participate in her care. <ELECTRONICALLY SIGNED> By: Neil Gandara MD 12/30/19 1253 0959 1218 Neil Gandara MD /nt
== END | disposition home or self-care (01) ==
LOC: GI 06:53
PROVIDERS: ATTEND Specialist
DX: K94.23 Gastrostomy malfunction (principal); R13.10 Dysphagia, unspecified; K21.9 Gastro-esophageal reflux disease without esophagitis; M19.90 Unspecified osteoarthritis, unspecified site; M81.0 Age-related osteoporosis without current pathological fracture; M06.9 Rheumatoid arthritis, unspecified; M79.7 Fibromyalgia; F32.9 Major depressive disorder, single episode, unspecified; F41.9 Anxiety disorder, unspecified; F51.04 Psychophysiologic insomnia; J45.909 Unspecified asthma, uncomplicated; G62.9 Polyneuropathy, unspecified; R53.82 Chronic fatigue, unspecified; Z98.890 Other specified postprocedural states; Z79.899 Other long term (current) drug therapy; Z87.891 Personal history of nicotine dependence; Z87.442 Personal history of urinary calculi; Z86.2 Personal history of diseases of the blood and blood-forming organs and certain disorders involving the immune mechanism; Z96.642 Presence of left artificial hip joint; Z90.710 Acquired absence of both cervix and uterus; Z90.49 Acquired absence of other specified parts of digestive tract; Z88.8 Allergy status to other drugs, medicaments and biological substances
CPT/HCPCS: 62110; 62900

== ENCOUNTER → 2020-03-29 | Outpatient (CLI) | payer OTHER, BC ==
[~2020-03-29] MED LIST changes: +PROTONIX40 M4 PO
== END ==
LOC: LAB 08:42
PROVIDERS: ATTEND Specialist
DX: Z01.812 Encounter for preprocedural laboratory examination (principal); Z20.828 Contact with and (suspected) exposure to other viral communicable diseases

== ENCOUNTER → 2020-04-05 | Outpatient (CLI) | payer OTHER, BC ==
[~2020-04-05] VITALS: Ht 165.1 cm; Wt 61.2 kg
--- NOTE | 2020-04-07 10:26 | P ---
"[facility] [place] [address] PROCEDURE REPORT Name: AVEL BEARD Room #: REG [facility] Lexa.#: [id number] Admission: 04/05/20 Attend Phys: Neil Mayfield Discharge: Date of : 61 Report #: [id number] THIS REPORT FOR: cc: Natalia Mccann MD, Liliana E. MD McElhinney, Christian C. MD ~ DATE OF SERVICE: 04/05/2020 PROCEDURE PERFORMED: Upper endoscopy with esophageal dilation and PEG-J tube removal and replacement. HISTORY OF PRESENT ILLNESS: The patient is a 55-year-old female with a long history of chronic nausea, vomiting, gastroparesis, dependent on PEG-J tube for nutritional support, which she uses at night. Her weight has been stable recently. She does report that it has not been flushing properly, concerned that the PEG-J is out of position and that it is old. She routinely has these changed approximately every 6 months. She also reports of dysphagia. DESCRIPTION OF PROCEDURE: The risks and benefits of the procedure were explained to the patient, those risks including but not limited to bleeding, perforation and the risk of sedation. She understood these risks and gave informed consent. Sedation was given using propofol per anesthesia. Next, using a standard Olympus upper endoscope, the scope was placed in the patient's mouth and advanced under direct vision through the esophagus, stomach and into the second portion of the duodenum. The esophagus was normal throughout. The GE junction was normal. Overall, the gastric mucosa was normal. The PEG-J tube was noted to be in proper position. The pylorus was normal and patent. The duodenal bulb, first and second portion were all normal. The scope was brought back up into the patient's stomach and a Savary guidewire was inserted through the scope, leaving the guidewire in place as the scope was then withdrawn. Next, a 51-Maltese Savary dilation of the esophagus was then performed without difficulty. The wire and dilator removed. The scope was reintroduced into the patient's stomach. There was no evidence of mucosal tear after dilation. At this point, the old PEG-J tube was then removed through the abdominal fistula with gentle traction without difficulty. Next, a blue guidewire was inserted through the fistula into the gastric lumen under direct vision. This was grasped with a snare and then brought back up to the patient through the patient's stomach with the scope. Next, a new 24-Maltese Rachid-[employer] G-tube was secured to the blue guidewire and using a pull technique, was put into place without difficulty. The disk outside flange was then secured to the anterior abdominal wall. Next, a guidewire was advanced through the G-tube and grasped with a biopsy forceps and advanced down into the duodenum. The J-tube was then advanced over the guidewire without difficulty. At this point, the scope was then withdrawn. The J-tube was then secured to the gastric tube. The procedure terminated. The patient tolerated the procedure well. [address] [address] PROCEDURE REPORT Name: AVEL BEARD Room #: REG [facility] [place]#: [id number] Admission: 04/05/20 Attend Phys: Neil Mayfield Discharge: Date of : 61 Report #: [id number] IMPRESSION: 1. Status post removal of old percutaneous endoscopic gastrostomy jejunostomy with replacement of new percutaneous endoscopic gastrostomy jejunostomy tube as described above today. 2. Esophageal dilation. 3. Otherwise, normal upper endoscopy. RECOMMENDATIONS: 1. Observe the patient post-procedure. 2. Okay to start using PEG-J tube at this time. Thank you for allowing me to participate in her care. <ELECTRONICALLY SIGNED> By: Neil Gandara MD 04/07/20 1026 1056 1107 Neil Gandara MD /nt"
== END | disposition home or self-care (01) ==
LOC: GI 08:23
PROVIDERS: ATTEND Specialist
DX: K94.23 Gastrostomy malfunction (principal); R11.2 Nausea with vomiting, unspecified; K31.84 Gastroparesis; R13.10 Dysphagia, unspecified; J45.909 Unspecified asthma, uncomplicated; F32.9 Major depressive disorder, single episode, unspecified; F41.9 Anxiety disorder, unspecified; M79.7 Fibromyalgia; J21.9 Acute bronchiolitis, unspecified; M19.90 Unspecified osteoarthritis, unspecified site; M81.0 Age-related osteoporosis without current pathological fracture; F51.04 Psychophysiologic insomnia; R53.82 Chronic fatigue, unspecified; Z98.890 Other specified postprocedural states; Z79.899 Other long term (current) drug therapy; Z90.710 Acquired absence of both cervix and uterus; Z90.49 Acquired absence of other specified parts of digestive tract; Z96.642 Presence of left artificial hip joint; Z87.891 Personal history of nicotine dependence
CPT/HCPCS: 62110; 62900

== ENCOUNTER → 2020-08-14 | Outpatient (CLI) | payer OTHER, BC ==
[~2020-08-14] MED LIST changes: +RECLAST 55 MG/1002 IVPB; +TRULANCE3 MG PO; +XTAMPZA ER9 MG PO
== END ==
LOC: LAB 06:24
PROVIDERS: ATTEND Student in an Organized Health Care Education/Training Program
DX: Z01.812 Encounter for preprocedural laboratory examination (principal); Z20.822 Contact with and (suspected) exposure to COVID-19

== ENCOUNTER → 2020-08-16 | Outpatient (CLI) | payer OTHER, BC ==
[~2020-08-16] VITALS: Ht 165.1 cm; Wt 59.0 kg
--- NOTE | 2020-08-18 13:55 | P ---
[facility] [place] [address] PROCEDURE REPORT Name: AVEL BEARD Room #: REG [facility].#: [id number] Admission: 08/16/20 Attend Phys: Neil Mayfield Discharge: Date of : 61 Report #: [id number] THIS REPORT FOR: cc: Natalia Mccann MD, Liliana E. MD McElhinney, Christian C. MD ~ DOC #: [id number] cc: MD Neil Rangel MD DATE OF SERVICE: 08/16/2020 PROCEDURE PERFORMED: Upper endoscopy with esophageal dilation and replacement of PEG J-tube. HISTORY OF PRESENT ILLNESS: The patient is a 55-year-old female with a long history of intermittent recurrent dysphagia, chronic nausea, vomiting, gastroparesis. She is dependent on PEG J-tube for nutritional support. Her weight has been stable. She is on PPI therapy. Plan is for replacement of old tube. DESCRIPTION OF PROCEDURE: The risks and benefits of the procedure were explained to the patient, those risks including but not limited to bleeding, perforation and the risk of sedation. She understood these risks and gave informed consent. Sedation was given using propofol per Anesthesia. Next, using a standard Olympus upper endoscope, the scope was placed in the patient's mouth and advanced under direct vision through the esophagus, stomach and into the second portion of the duodenum. The esophagus was normal throughout. The GE junction was normal. Overall, the gastric mucosa was normal. The old PEG J-tube was noted to be in proper position with the J-tube portion in the duodenum. The pylorus was normal and patent. The duodenal bulb, first and second portion were all normal. The scope was then brought back up into the patient's stomach and a Savary guidewire was inserted through the scope, leaving the guidewire in place as the scope was then withdrawn. Next, a 51-Turkmen Savary dilation of the esophagus was performed without difficulty. The wire and dilator removed. The scope was reintroduced into the patient's stomach. There was no evidence of mucosal tear after dilation. At this point, the old PEG J-tube was removed by traction through the PEG tube fistula from the anterior abdominal wall. Next, using a blue guidewire, the guidewire was inserted through the previous PEG fistula and grasped with a snare and brought back up through the patient's mouth with the endoscope. Next, a 24-Turkmen Rachid-Cook PEG tube was then secured to the blue guidewire and using a pull technique, was put into position without difficulty. Next, the J-tube was then inserted through the PEG tube. This was grasped with the scope and brought into the duodenum. This was then secured to the G-tube. The PEG tube and J-tube was noted to be in good position in the duodenum. At this point, the scope was then [facility] [address] [place] [address] PROCEDURE REPORT Name: AVEL BEARD Room #: REG [facility] [place]#: [id number] Admission: 08/16/20 Attend Phys: Neil Mayfield Discharge: Date of : 61 Report #: [id number] withdrawn and the PEG J-tube was secured to the anterior abdominal wall. The procedure terminated. The patient tolerated the procedure well. IMPRESSION: 1. Status post removal of old PEG J-tube with replacement today as described above. 2. Status post esophageal dilation. 3. Otherwise normal upper endoscopy. RECOMMENDATIONS: 1. Observe the patient post-dilation. 2. Continue PPI therapy and current medication regimen. 3. Okay to start using J-tube today. Thank you for allowing me to participate in her care. Neil Gandara MD [facility] <ELECTRONICALLY SIGNED> By: Neil Gandara MD 08/18/20 1355 0804 1133 Neil Gandara MD /inocente
== END | disposition home or self-care (01) ==
LOC: GI 06:53
PROVIDERS: ATTEND Specialist
DX: R13.10 Dysphagia, unspecified (principal); R11.2 Nausea with vomiting, unspecified; K31.84 Gastroparesis; J45.909 Unspecified asthma, uncomplicated; F32.9 Major depressive disorder, single episode, unspecified; K21.9 Gastro-esophageal reflux disease without esophagitis; M19.90 Unspecified osteoarthritis, unspecified site; M81.0 Age-related osteoporosis without current pathological fracture; R53.82 Chronic fatigue, unspecified; F41.9 Anxiety disorder, unspecified; G62.9 Polyneuropathy, unspecified; Z98.890 Other specified postprocedural states; Z79.899 Other long term (current) drug therapy; Z96.642 Presence of left artificial hip joint; Z90.710 Acquired absence of both cervix and uterus; Z90.49 Acquired absence of other specified parts of digestive tract; Z87.442 Personal history of urinary calculi; Z88.8 Allergy status to other drugs, medicaments and biological substances
CPT/HCPCS: 62110; 62900

== ENCOUNTER → 2020-12-27 | Outpatient (CLI) | payer OTHER, BC ==
[~2020-12-27] VITALS: Ht 165.1 cm; Wt 62.6 kg
--- NOTE | 2020-12-29 10:23 | P ---
[facility] [place] [address] PROCEDURE REPORT Name: AVEL BEARD Room #: REG [facility] Art#: [id number] Admission: 12/27/20 Attend Phys: Neil Mayfield Discharge: Date of : 61 Report #: [id number] THIS REPORT FOR: cc: Natalia Mccann MD, Liliana E. MD McElhinney, Christian C. MD ~ cc: Natalia Mccann MD DATE OF SERVICE: 12/27/2020 PROCEDURES PERFORMED: Upper endoscopy with esophageal dilation and PEG J-tube removal and replacement. HISTORY OF PRESENT ILLNESS: The patient is a 55-year-old female with a history of recurrent dysphagia, chronic nausea, vomiting, gastroparesis, dependent on PEG J-tube for nutritional support. Her weight has been stable. She is on a PPI. Tube has been leaking. Plan is for replacement of old tube. DESCRIPTION OF PROCEDURE: The risks and benefits of the procedure were explained to the patient, those risks including but not limited to bleeding, perforation and the risk of sedation. She understood these risks and gave informed consent. Sedation was given using propofol per anesthesia. Next, using a standard Olympus upper endoscope, the scope was placed in the patient's mouth and advanced under direct vision through the esophagus, stomach and into the second portion of the duodenum. Esophagus was normal throughout. The GE junction was normal. Overall, the gastric mucosa was normal. The peg J-tube was noted to be in good position. The gastric antrum was normal. The pylorus was normal and patent. The duodenal bulb, first and second portion are all normal. Scope was then brought back up into the patient's stomach and a Savary guidewire was inserted through the scope, leaving the guidewire in place as the scope was then withdrawn. Next, a 51-Swazi Savary dilation of the esophagus was then performed without difficulty. The wire and dilator were removed. The scope was reintroduced into the patient's stomach. No evidence of mucosal tear was noted after dilation. At this point, the old PEG J-tube was then removed by traction through the PEG fistula through the anterior abdominal wall. A blue guidewire was inserted through the fistulous tract and grasped with a snare and brought back up through the patient's mouth with the scope. A 24-Swazi Rachid-Cook PEG tube was then secured to the blue guidewire and using a pull technique, was put into position without difficulty. Next, the outside flange was then secured to the anterior abdominal wall. Next, the J-tube portion was then advanced through the G portion. This was guided into the duodenum without difficulty. This was then secured. At this point, the scope was then withdrawn and the procedure terminated. The patient tolerated the procedure well. [facility] [address] [place] [address] PROCEDURE REPORT Name: AVEL BEARD Room #: REG [facility] Art#: [id number] Admission: 12/27/20 Attend Phys: Neil Mayfield Discharge: Date of : 61 Report #: [id number] IMPRESSION: 1. Normal upper endoscopy. 2. Status post esophageal dilation. 3. Status post removal and replacement of percutaneous endoscopic gastrostomy J-tube. RECOMMENDATIONS: 1. Observe the patient post-dilation. 2. Continue PPI therapy and tube feedings. 3. Okay to start using PEG J-tube at this time. Thank you for allowing me to participate in her care. <ELECTRONICALLY SIGNED> By: Neil Gandara MD 12/29/20 1023 1154 2239 Neil Gandara MD /nt
== END | disposition home or self-care (01) ==
LOC: GI 10:13
PROVIDERS: ATTEND Specialist
DX: Z43.1 Encounter for attention to gastrostomy (principal); R13.10 Dysphagia, unspecified; R11.2 Nausea with vomiting, unspecified; K31.84 Gastroparesis; K21.9 Gastro-esophageal reflux disease without esophagitis; J45.909 Unspecified asthma, uncomplicated; F32.9 Major depressive disorder, single episode, unspecified; F41.9 Anxiety disorder, unspecified; F51.04 Psychophysiologic insomnia; M81.0 Age-related osteoporosis without current pathological fracture; M19.90 Unspecified osteoarthritis, unspecified site; R53.82 Chronic fatigue, unspecified; M79.7 Fibromyalgia; Z98.890 Other specified postprocedural states; Z79.899 Other long term (current) drug therapy; Z87.891 Personal history of nicotine dependence; Z20.822 Contact with and (suspected) exposure to COVID-19; Z96.642 Presence of left artificial hip joint; Z90.49 Acquired absence of other specified parts of digestive tract; Z90.710 Acquired absence of both cervix and uterus
CPT/HCPCS: 62110; 62900

== ENCOUNTER → 2021-05-02 | Outpatient (CLI) | payer OTHER, BC ==
[~2021-05-02] VITALS: Ht 167.6 cm; Wt 63.5 kg
[~2021-05-02] MED LIST changes: +[UNRECOGNIZED DRUG - OTHER] PO; +[UNRECOGNIZED DRUG - OTHER] PO
--- NOTE | 2021-05-09 12:57 | P ---
[facility] [place] [address] PROCEDURE REPORT Name: AVEL BEARD Room #: REG [facility] Art#: [id number] Admission: 05/02/21 Attend Phys: Neil Mayfield Discharge: Date of : 61 Report #: [id number] THIS REPORT FOR: cc: Natalia Mccann MD, Liliana E. MD McElhinney, Christian C. MD ~ cc: Natalia Mccann MD DATE OF SERVICE: 05/02/2021 PROCEDURE PERFORMED: Upper endoscopy with PEG J-tube removal and replacement and esophageal dilation. HISTORY OF PRESENT ILLNESS: The patient is a 56-year-old female with a history of recurrent dysphagia, chronic nausea, vomiting, gastroparesis. She is dependent on PEG J-tube for nutritional support. Her weight has been stable. She is on daily PPI therapy. Tube is old and needs to be replaced at this time. DESCRIPTION OF PROCEDURE: The risks and benefits of the procedure were explained to the patient, those risks including but not limited to bleeding, perforation and the risk of sedation. She understood these risks and gave informed consent. Sedation was given using propofol per Anesthesia. Next, using a standard Olympus upper endoscope, the scope was placed in the patient's mouth and advanced under direct vision through the esophagus, stomach and into the second portion of the duodenum. The larynx was normal in appearance. The esophagus was normal throughout. Overall, the gastric mucosa was normal. The previous PEG-J was coiled into the patient's stomach. The pylorus was normal and patent. The duodenal bulb, first and second portion were all normal. The scope was then brought back up into the patient's stomach and a Savary guidewire was inserted through the scope, leaving the guidewire in place as the scope was then withdrawn. Next, a 51-Beninese Savary dilation of the esophagus was performed without difficulty. The wire and dilator removed. The scope was reintroduced into the patient's stomach. There was no evidence of mucosal tear after dilation. At this point, the old PEG J-tube was removed by traction through the previous PEG fistula without difficulty. Next, a blue guidewire was inserted through the fistula opening into the gastric lumen under direct vision. This was grasped with a snare and brought back up through the patient's mouth with the scope. Next, a 24-Beninese Rachid-Cook gastric tube was secured to the blue guidewire and using a pull technique, was put into position without difficulty. Next, the outside bumper was secured to the patient's anterior abdominal wall. Next, a guidewire was inserted through the G-tube and grasped with a biopsy forceps and placed into the duodenum. Next, the J-tube was then advanced over the guidewire without difficulty. The J-tube was in good position in the duodenum. This was secured to the gastric tube. At this point, the scope was then withdrawn and the procedure terminated. The patient tolerated the procedure well. [address] [address] PROCEDURE REPORT Name: AVEL BEARD Room #: [facility] [place]#: [id number] Admission: 05/02/21 Attend Phys: Neil Mayfield Discharge: Date of : 61 Report #: [id number] IMPRESSION: 1. Removal and replacement of PEG J-tube as described above. 2. Esophageal dilation. 3. Otherwise, normal upper endoscopy. RECOMMENDATIONS: Okay to start using PEG J-tube today. Thank you for allowing me to participate in her care. <ELECTRONICALLY SIGNED> By: Neil Gandara MD 05/09/21 1257 0844 0936 Neil Gandara MD /nt
== END | disposition home or self-care (01) ==
LOC: GI 07:20
PROVIDERS: ATTEND Specialist
DX: Z43.1 Encounter for attention to gastrostomy (principal); R13.19 Other dysphagia; K31.84 Gastroparesis; K21.9 Gastro-esophageal reflux disease without esophagitis; R11.2 Nausea with vomiting, unspecified; J45.909 Unspecified asthma, uncomplicated; F32.9 Major depressive disorder, single episode, unspecified; F41.9 Anxiety disorder, unspecified; R53.82 Chronic fatigue, unspecified; M79.7 Fibromyalgia; F51.04 Psychophysiologic insomnia; M81.0 Age-related osteoporosis without current pathological fracture; M19.90 Unspecified osteoarthritis, unspecified site; Z98.890 Other specified postprocedural states; Z20.822 Contact with and (suspected) exposure to COVID-19; Z79.899 Other long term (current) drug therapy; Z90.710 Acquired absence of both cervix and uterus; Z96.642 Presence of left artificial hip joint; Z90.49 Acquired absence of other specified parts of digestive tract; Z87.442 Personal history of urinary calculi
CPT/HCPCS: 62110; 62900